=== PATIENT | female | born 1955 | race Caucasian/White ===

== ENCOUNTER 2019-09-22 09:16 | Observation (INO) ==
[2019-09-22 10:44] LABS: ABS Lymphocytes 0.4 10^3/ul (1.0-4.8); ABS Monocytes 0.7 10^3/ul (0-0.8); ABS Neutrophils 16.2 10^3/ul (1.5-7.7); Hematocrit 41 % (35-47); Hemoglobin 13.9 g/dL (12.0-16.0); Lymphocyte % 2.3 %; Mean Corpuscular HGB Conc 34 g/dL (31-36); Mean Corpuscular Hemoglobin 31 pg (27-31); Mean Corpuscular Volume 90 fL (80-97); Mean Platelet Volume 7.6 fL (7.4-10.4); Platelet Count 229 10^3/uL (150-450); Red Blood Count 4.56 10^6 /uL (3.70-4.87); Red Cell Distribution Width 14 % (10-15); White Blood Count 17.3 10^3/uL (3.5-10.8)
[2019-09-22 10:54] LABS: Activated Partial Thrombo Time 26.5 seconds (26.0-38.0); INR 1.18 (0.82-1.09)
[2019-09-22 11:00] LABS: Albumin 4.2 g/dL (3.2-5.2); Albumin/Globulin Ratio 1.6 (1-3); BUN/Creatinine Ratio 13.1 (8-20); Calcium 9.1 mg/dL (8.6-10.3); EGFR African American 68.8 (>60); EGFR Non-African American 56.8 (>60); Globulin 2.7 g/dL (2-4); Potassium 3.7 mmol/L (3.5-5.0); Total Bilirubin 0.8 mg/dL (0.2-1.0); Total Protein 6.9 g/dL (6.4-8.9)
[2019-09-22 11:02] LABS: Troponin I 0.01 ng/mL (<0.03)
[2019-09-22] MEDS ORDERED: NS 0.9% IV ONE (12:29)
[2019-09-22] MEDS ORDERED: cefTRIAXone 2 GM ADDV.VIAL 2 GM in NS 0.9% 100 ml BAG 100 ML IVPB ONE (12:29)
[2019-09-22] MEDS ORDERED: ceFAZolin 2 GM PREMIX 2 GM/50 ML BAG IVPB SCH (14:00)
[2019-09-22] MEDS: Ondansetron 4 mg VIAL 2 MG/ML 2 ml VIAL IV PRN (14:18)
[2019-09-22 14:44] LABS: Urine Appearance Clear; Urine Bilirubin Negative (Negative); Urine Blood 1+ (Negative); Urine Color Yellow; Urine Glucose Negative (Negative); Urine Ketones Trace (Negative); Urine Nitrite Negative (Negative); Urine Protein Negative (Negative); Urine Specific Gravity 1.012 (1.010-1.030); Urine Urobilinogen Negative (Negative)
[2019-09-22 15:17] LABS: Urine Bacteria Absent (Absent); Urine Red Blood Cell Trace(0-2/hpf) (Absent); Urine Squamous Epithelial Cell Present (Absent); Urine White Blood Cell 1+(6-10/hpf) (Absent)
[2019-09-22] MEDS: Enoxaparin 40 MG/0.4 ML SYR SUBCUT SCH (19:13)
[2019-09-22] MEDS: ceFAZolin 2 GM PREMIX 2 GM/50 ML BAG IVPB SCH (20:41)
[2019-09-23] MEDS: Ondansetron 4 mg VIAL 2 MG/ML 2 ml VIAL IV PRN ×3 (01:37→21:58)
[2019-09-23] MEDS ORDERED: oxyCODONE/Acetamin 5/325 mg TAB PO ONE (03:02)
[2019-09-23] MEDS: ceFAZolin 2 GM PREMIX 2 GM/50 ML BAG IVPB SCH ×3 (05:01→21:09)
[2019-09-23 08:39] LABS: Calcium 8.1 mg/dL (8.6-10.3); EGFR African American 79.8 (>60); Potassium 4.1 mmol/L (3.5-5.0)
[2019-09-23 09:29] LABS: ABS Lymphocytes 0.5 10^3/ul (1.0-4.8); ABS Monocytes 0.5 10^3/ul (0-0.8); Eosinophil % 0.1 %; Hematocrit 39 % (35-47); Hemoglobin 12.8 g/dL (12.0-16.0); Mean Corpuscular HGB Conc 33 g/dL (31-36); Mean Corpuscular Hemoglobin 31 pg (27-31); Mean Corpuscular Volume 93 fL (80-97); Mean Platelet Volume 7.6 fL (7.4-10.4); Nucleated Red Blood Cells % 0.1; Platelet Count 181 10^3/uL (150-450); Red Blood Count 4.17 10^6 /uL (3.70-4.87); Red Cell Distribution Width 14 % (10-15)
[2019-09-23] MEDS: CMCS: Vilazodone 40 mg TAB (NF) PO SCH (09:41)
[2019-09-23] MEDS: Enoxaparin 40 MG/0.4 ML SYR SUBCUT SCH (13:21)
[2019-09-24] MEDS: ceFAZolin 2 GM PREMIX 2 GM/50 ML BAG IVPB SCH ×2 (05:21→13:15)
[2019-09-24] MEDS: Ondansetron 4 mg VIAL 2 MG/ML 2 ml VIAL IV PRN ×2 (05:27→13:19)
[2019-09-24] MEDS: CMCS: Vilazodone 40 mg TAB (NF) PO SCH (09:20)
[2019-09-24 12:08] VITALS: BP 138/73
[2019-09-24] MEDS: Enoxaparin 40 MG/0.4 ML SYR SUBCUT SCH (13:19)
[2019-09-29 15:27] LABS: Gliadin IgA Deamidated <10.0 U; Gliadin IgG Deamidated <10.0 U
[2019-09-29 15:33] LABS: Tissue Transglutaminase IgA Ab <1.2 U/mL; Tissue Transglutaminase IgG Ab 2.3 U/mL
[2019-09-29 15:43] LABS: Immunoglobulin A 177 mg/dL (61 - 356)
== END 2019-09-24 16:00 | disposition home or self-care (01) ==
LOC: MED 09:16 → ED 09:16 → MED 18:40
PROVIDERS: ADMIT Internal Medicine; ATTEND Internal Medicine